=== PATIENT | male | born 2005 | race Caucasian/White ===

== ENCOUNTER 2024-12-12 22:48 | Emergency (ER) | payer SELFPAY ==
[~2024-12-12] VITALS: Ht 170.2 cm; Wt 69.0 kg
[2024-12-12 22:54] VITALS: BP 118/73; PULSE 65; RESP 16; TEMP 36.7; O2SAT 98
== END 2024-12-13 01:05 | disposition home or self-care (01) ==
LOC: ER 22:48
DX: T51.0X1A Toxic effect of ethanol, accidental (unintentional), initial encounter (principal); X58.XXXA Exposure to other specified factors, initial encounter; Y90.9 Presence of alcohol in blood, level not specified
CPT/HCPCS: 99283